=== PATIENT | female | born 1960 | race Caucasian/White ===

== ENCOUNTER → 2023-03-28 06:28 | Day surgery (SDC) | payer BC, SELFPAY | LOC: GI 06:28 | PROVIDERS: ATTENDING PHYSICIAN Internal Medicine Gastroenterology | DX: Z12.11 Encounter for screening for malignant neoplasm of colon (principal); K57.30 Diverticulosis of large intestine without perforation or abscess without bleeding; Q43.8 Other specified congenital malformations of intestine; K64.8 Other hemorrhoids; Z86.010 Personal history of colon polyps | CPT/HCPCS: G0105 ==

== ENCOUNTER 2023-10-10 16:32 | Emergency (ER) | payer BC, SELFPAY ==
[2023-10-10 16:34] VITALS: BP 188/108
--- NOTE | 2023-10-10 17:49 | ED.SKININJ ---
HPI-Injury
General
Chief Complaint: Skin Surface Trauma
Source: patient
Exam Limitations: none
Time Seen by Provider: 10/10/23 17:35
Nursing documentation reviewed up to this point in time: agreed with
History of Present Illness-Injury
Is this injury a work related problem?: No
Is pt an associate of [facility]?: No
Initial Injury comments:
Patient states she scratched the back of her leg last PM and site began to bleed. She has been unable to stop the bleeding. Brought to ED by spouse for eval.
Past History
Past History
ED Past Medical History: None
Review of Systems
Review of Systems
Allergies reviewed?: Yes
All Other Systems: ROS reviewed and negative except as documented in HPI and ROS
Constitutional: Reports no symptoms
Musculoskeletal: Reports no symptoms
Skin: Reports other (bleeding from pinpoint wound to posterior right thigh)
Neurological: Reports no symptoms
Psychiatric: Reports no symptoms
Phy Exam
General Physical Exam
General Presentation: well appearing and no apparent distress
General age: appears stated age
General Skin: warm and dry
General Habitus: normal
General Mental: alert
Musculoskeletal Exam
Musculoskeletal Exam: full ROM and neuro vasc intact
Skin Exam
Skin Exam: normal color, warm/dry, no rash and other (Pinpoint site on rifth posterior thigh oozing blood. Site infiltrated with Lidocaine1% and cauterized. No further bleeding. Gelfoam and pressure dressing applied.)
Psychiatric Exam
Psychiatric Exam: normal mood/affect
Course
Vital Signs
Initial and Last Documented VS:
Initial Vital Signs
Temp Pulse Resp BP Pulse Ox
98.1 F 67 16 188/108 97
10/10/23 16:34 10/10/23 16:34 10/10/23 16:34 10/10/23 16:34 10/10/23 16:34
Last Documented Vital Signs
Temp Pulse Resp BP Pulse Ox
98.1 F 67 16 188/108 97
10/10/23 16:34 10/10/23 16:34 10/10/23 16:34 10/10/23 16:34 10/10/23 16:34
*Critical Care Note
Total Time (30-74mins, 75-104mins- exclusive of procedures): Not Applicable
ED Attending Note
-
Portions of this chart may have been created with voice recognition software.� Occasional wrong word or��sound alike� substitutions may have occurred due to the inherent limitations of voice recognition software.
Discharge Plan
Departure
Patient Disposition: Home (Routine Discharge)
Date of Disposition: 10/10/23
Time of Disposition: 17:48
Patient with high blood pressure during this ER visit?: No
Condition: Good
Discharge Problem:
Bleeding
Instructions: Gelfoam
Activity Restrictions/Additional Instructions:
Follow up with your family doctor.
Interventions
Interventions:
*Risk Screen - Suicide Last Done: 10/10/23 16:34
*General Assessment Last Done: 10/10/23 16:34
*Neglect/Abuse Screening Last Done: 10/10/23 16:34
*ED COVID-19 Vaccine History Last Done: 10/10/23 16:34
Discharge Date and Time
Print Language: SINHALA
== END 2023-10-10 18:10 | disposition home or self-care (01) ==
LOC: EMR 16:32
PROVIDERS: EMERGENCY PHYSICIAN Emergency Medicine
DX: S70.921A Unspecified superficial injury of right thigh, initial encounter (principal); X58.XXXA Exposure to other specified factors, initial encounter
CPT/HCPCS: 99282

== ENCOUNTER → 2023-12-25 06:56 | Outpatient (REF) | payer BC, SELFPAY | LOC: WDC 06:56 | PROVIDERS: ATTENDING PHYSICIAN Obstetrics & Gynecology | DX: Z12.31 Encounter for screening mammogram for malignant neoplasm of breast (principal) | CPT/HCPCS: 77063; 77067 ==

== ENCOUNTER → 2024-12-30 06:36 | Outpatient (REF) | payer BC, SELFPAY | LOC: WDC 06:36 | PROVIDERS: ATTENDING PHYSICIAN Obstetrics & Gynecology | DX: Z12.31 Encounter for screening mammogram for malignant neoplasm of breast (principal) | CPT/HCPCS: 77063; 77067 ==